=== PATIENT | female | born 1935 | race Caucasian/White ===

== ENCOUNTER 2017-11-02 03:33 | Inpatient (IN) | payer OTHER, MEDICAID ==
[2017-11-02] MEDS ORDERED: ACETAMINOPHEN 500 MG TAB PO ONE (03:43)
[2017-11-02 03:51] LABS: PLATELET COUNT 259 10^3/uL (150-400)
--- NOTE | 2017-11-02 03:53 | EDPHY ---
H & P Stated Complaint: mechanical fall- poss broken hip Time Seen by Provider: 11/02/17 03:44 HPI/ROS: History is limited by patient's dementia. HPI The patient presents with fall which occurred at about 9:00 p.m. Tonight. She landed on her right hip. X-rays were obtained at [facility] which did demonstrate right-sided intertrochanteric fracture. She is brought in by ambulance. She is complaining of right-sided hip pain which is worse with changes in position. She did not sustain any other injuries. She has a MOST form at the bedside stating that she is comfort measures only. REVIEW OF SYSTEMS Constitutional: No fever, no chills. Eyes: No discharge. ENT: No sore throat. Cardiovascular: No chest pain, no palpitations. Respiratory: No cough, no shortness of breath. Gastrointestinal: No abdominal pain, no vomiting. Genitourinary: No hematuria. Musculoskeletal: No back pain. Skin: No rashes. Neurological: No headache. PMHx: Hypothyroidism, dementia Soc Hx: Resides at [facility] PHYSICAL General Appearance: Alert, no distress Eyes: Pupils equal and round no pallor or injection ENT, Mouth: Mucous membranes moist Respiratory: There are no retractions, lungs are clear to auscultation Cardiovascular: Regular rate and rhythm Gastrointestinal: Abdomen is soft and non-tender, no masses, bowel sounds normal Neurological: A&O, moves all extremities Skin: Warm and dry, no rashes Musculoskeletal: Right hip is tender to palpation with limited range of motion secondary to pain, leg is foreshortened and externally rotated Extremities: symmetrical, full range of motion Psychiatric: Patient is oriented X 3, there is no agitation Source: Patient, EMS, skilled nursing records Exam Limitations: Physical impairment - Medical/Surgical History Hx Asthma: No Hx Chronic Respiratory Disease: No Hx Diabetes: No Hx Cardiac Disease: No Hx Renal Disease: No Hx Cirrhosis: No Hx Alcoholism: No Hx HIV/AIDS: No Hx Splenectomy or Spleen Trauma: No Other PMH: hypothyroid, dementia - Social History Smoking Status: Unknown if ever smoked Constitutional: Initial Vital Signs Temperature (C) 36.7 C 11/02/17 03:40 Heart Rate 108 H 11/02/17 03:40 Respiratory Rate 20 11/02/17 03:40 Blood Pressure 171/96 H 11/02/17 03:40 O2 Sat (%) 94 11/02/17 03:40 Allergies/Adverse Reactions: No Known Allergies Allergy (Unverified 11/02/17 03:39) Home Medications: Medication Instructions Recorded Ibuprofen 11/02/17 Milk of Magnesia 11/02/17 Tums 500MG (*) 11/02/17 Tylenol 11/02/17 Medical Decision Making - Diagnostics Imaging Results: X-ray right hip two view shows intertrochanteric fracture which is displaced, interpreted by me, radiology interpretation is pending. Chest x-ray one view demonstrates no cardiomegaly, no effusion, interpreted by me, radiology interpretation is pending. Imaging: I viewed and interpreted images myself Differential Diagnosis: 81-year-old female from [facility] with history of dementia and hypothyroidism presents with a fall which occurred at 9:00 p.m. [facility]. Details of the fall are not entirely clear. She had an x-ray performed at [facility] which demonstrated a right intratrochanteric hip fracture. She is comfort measures only, however was previously very active in her wheelchair, so it is unclear if she would want to undergo an operation. With patient's dementia, I am not able to ascertain what her preference would be. I plan to admit her for pain control, Orthopedics consult. Labs have returned and are unremarkable. We have not yet heard from family. X- ray confirms intertrochanteric fracture with displacement. Patient's pain seems well controlled when she is not moving. I consulted with Dr. Isabel the orthopedist environmental services manager. He is aware of the patient. We do need to get more information from her family to see if an operation such as this within her goals of care given she is comfort measures only. We have not been able to reach anyone [facility]. She will be admitted to the hospitalist for pain control and I have consulted with Dr. Crawford. 7:20 a.m.- I was able to get a hold of the patient's daughter who is her DPOA. She says that the patient would want an operation to repair her hip. She is very mobile usually in uses her wheelchair frequently. - Data Points Laboratory Results: Laboratory Results 11/02/17 03:45 11/02/17 03:45 11/02/17 11/02/17 11/02/17 03:45 03:45 03:45 WBC 10.10 10^3/uL H 10^3/uL (3.80-9.50) RBC 3.79 10^6/uL L 10^6/uL (4.18-5.33) Hgb 11.0 g/dL L g/dL (12.6-16.3) Hct 33.4 % L % (38.0-47.0) MCV 88.1 fL fL (81.5-99.8) MCH 29.0 pg pg (27.9-34.1) MCHC 32.9 g/dL g/dL (32.4-36.7) RDW 15.3 % H % (11.5-15.2) Plt Count 259 10^3/uL 10^3/uL (150-400) MPV 10.5 fL fL (8.7-11.7) Neut % (Auto) 75.5 % H % (39.3-74.2) Lymph % (Auto) 16.5 % % (15.0-45.0) [place] % (Auto) 7.1 % % (4.5-13.0) Eos % (Auto) 0.3 % L % (0.6-7.6) Baso % (Auto) 0.2 % L % (0.3-1.7) Nucleat RBC Rel Count 0.0 % % (0.0-0.2) Absolute Neuts (auto) 7.62 10^3/uL H 10^3/uL (1.70-6.50) Absolute Lymphs (auto) 1.67 10^3/uL 10^3/uL (1.00-3.00) Absolute Monos (auto) 0.72 10^3/uL 10^3/uL (0.30-0.80) Absolute Eos (auto) 0.03 10^3/uL 10^3/uL (0.03-0.40) Absolute Basos (auto) 0.02 10^3/uL 10^3/uL (0.02-0.10) Absolute Nucleated RBC 0.00 10^3/uL 10^3/uL (0-0.01) Immature Gran % 0.4 % % (0.0-1.1) Immature Gran # 0.04 10^3/uL 10^3/uL (0.00-0.10) PT 12.9 SEC SEC (12.0-15.0) INR 0.95 (0.83-1.16) APTT 24.3 SEC SEC (23.0-38.0) Sodium 142 mEq/L mEq/L (135-145) Potassium 4.5 mEq/L mEq/L (3.3-5.0) Chloride 106 mEq/L mEq/L (97-110) Carbon Dioxide 22 mEq/l mEq/l (22-31) Anion Gap 14 mEq/L mEq/L (8-16) BUN 19 mg/dL mg/dL (7-23) Creatinine 0.6 mg/dL mg/dL (0.6-1.0) Estimated GFR > 60 Glucose 112 mg/dL H mg/dL (70-100) Calcium 9.0 mg/dL mg/dL (8.5-10.4) Medications Given: Discontinued Medications Acetaminophen (Tylenol) 1,000 mg PO EDNOW ONE Stop: 11/02/17 03:44 Last Admin: 11/02/17 03:49 Dose: 1,000 mg Departure - Departure Disposition: [facility] In[facility] Acute Clinical Impression: Hip fracture Qualifiers: Encounter type: initial encounter Fracture type: closed Laterality: right Qualified Code(s): S72.001A - Fracture of unspecified part of neck of right femur, initial encounter for closed fracture Dementia Qualifiers: Dementia type: unspecified type Dementia behavioral disturbance: with behavioral disturbance Qualified Code(s): F03.91 - Unspecified dementia with behavioral disturbance Condition: Fair
--- NOTE | 2017-11-02 03:59 | CPEKG ---
Heart Rate: 105 RR Interval: 571 P-R Interval: 152 QRSD Interval: 122 QT Interval: 340 QTC Interval: 450 P [place]: 67 QRS [place]: -28 T Wave [place]: 33 EKG Severity - ABNORMAL ECG - EKG Impression: SINUS TACHYCARDIA EKG Impression: NONSPECIFIC INTRAVENTRICULAR CONDUCTION DELAY EKG Impression: PROBABLE INFERIOR INFARCT, OLD Electronically Signed By: Kati Camilo 02-Nov-2017 07:12:20
[2017-11-02 04:02] LABS: INR 0.95 (0.83-1.16); PROTIME(PATIENT) 12.9 SEC (12.0-15.0)
[2017-11-02] MEDS ORDERED: ACETAMINOPHEN 325 MG TAB PO PRN (05:06)
[2017-11-02] MEDS ORDERED: ONDANSETRON DISINTEGRATING 4 MG TAB PO PRN (05:06)
[2017-11-02] MEDS ORDERED: ONDANSETRON 4 MG/2 ML VIAL IVP PRN ×2 (05:06→23:05)
--- NOTE | 2017-11-02 05:28 | PDGENHP ---
History and Physical - Chief Complaint Hip fracture - History of Present Illness 81 yo F w/ advanced dementia presents from nursing facility with a hip fracture. She fell around 9 PM and XRs are notable for a R intertrochanteric fracture. The patient has advanced dementia and is unable to provide any additional history. She does not recall falling and is denying pain to me at this time. She has difficulty engaging in logical conversation and is oriented to person only, even though she is alert. A MOST form with her states comfort measures only. It is unclear at this time if surgical intervention would be desired as family has not been able to be reached as of yet. History Information - Allergies/Home Medication List Allergies/Adverse Reactions: No Known Allergies Allergy (Unverified 11/02/17 03:39) Home Medications: Ibuprofen 11/02/17 [Last Taken Unknown] Milk of Magnesia 11/02/17 [Last Taken Unknown] Tums 500MG (*) 11/02/17 [Last Taken Unknown] Tylenol 11/02/17 [Last Taken Unknown] I have personally reviewed and updated: family history, medical history - Past Medical History dementia - Surgical History Additional surgical history: L hip replacement - Family History Additional family history: Unable to obtain - Social History Smoking Status: Unknown if ever smoked Review of Systems Review of Systems: Unable to obtain Physical Exam Physical Exam: Temp Pulse Resp BP Pulse Ox 36.7 C 108 H 20 171/96 H 94 11/02/17 03:40 11/02/17 03:40 11/02/17 03:40 11/02/17 03:40 11/02/17 03:40 Constitutional: no apparent distress, not in pain Eyes: PERRL, anicteric sclera Ears, Nose, Mouth, Throat: moist mucous membranes, no oral mucosal ulcers Cardiovascular: regular rate and rhythym, systolic murmur Respiratory: no respiratory distress, clear to auscultation Gastrointestinal: normoactive bowel sounds, soft, non-tender abdomen Skin: warm, normal color Neurologic: other (A&Ox1), No facial droop Psychiatric: poor insight, poor judgement, poor memory Lab Data & Imaging Review 11/02/17 03:45 11/02/17 03:45 WBC 10.10 10^3/uL (3.80-9.50) H 11/02/17 03:45 RBC 3.79 10^6/uL (4.18-5.33) L 11/02/17 03:45 Hgb 11.0 g/dL (12.6-16.3) L 11/02/17 03:45 Hct 33.4 % (38.0-47.0) L 11/02/17 03:45 MCV 88.1 fL (81.5-99.8) 11/02/17 03:45 MCH 29.0 pg (27.9-34.1) 11/02/17 03:45 MCHC 32.9 g/dL (32.4-36.7) 11/02/17 03:45 RDW 15.3 % (11.5-15.2) H 11/02/17 03:45 Plt Count 259 10^3/uL (150-400) 11/02/17 03:45 MPV 10.5 fL (8.7-11.7) 11/02/17 03:45 Neut % (Auto) 75.5 % (39.3-74.2) H 11/02/17 03:45 Lymph % (Auto) 16.5 % (15.0-45.0) 11/02/17 03:45 [place] % (Auto) 7.1 % (4.5-13.0) 11/02/17 03:45 Eos % (Auto) 0.3 % (0.6-7.6) L 11/02/17 03:45 Baso % (Auto) 0.2 % (0.3-1.7) L 11/02/17 03:45 Nucleat RBC Rel Count 0.0 % (0.0-0.2) 11/02/17 03:45 Absolute Neuts (auto) 7.62 10^3/uL (1.70-6.50) H 11/02/17 03:45 Absolute Lymphs (auto) 1.67 10^3/uL (1.00-3.00) 11/02/17 03:45 Absolute Monos (auto) 0.72 10^3/uL (0.30-0.80) 11/02/17 03:45 Absolute Eos (auto) 0.03 10^3/uL (0.03-0.40) 11/02/17 03:45 Absolute Basos (auto) 0.02 10^3/uL (0.02-0.10) 11/02/17 03:45 Absolute Nucleated RBC 0.00 10^3/uL (0-0.01) 11/02/17 03:45 Immature Gran % 0.4 % (0.0-1.1) 11/02/17 03:45 Immature Gran # 0.04 10^3/uL (0.00-0.10) 11/02/17 03:45 PT 12.9 SEC (12.0-15.0) 11/02/17 03:45 INR 0.95 (0.83-1.16) 11/02/17 03:45 APTT 24.3 SEC (23.0-38.0) 11/02/17 03:45 Sodium 142 mEq/L (135-145) 11/02/17 03:45 Potassium 4.5 mEq/L (3.3-5.0) 11/02/17 03:45 Chloride 106 mEq/L (97-110) 11/02/17 03:45 Carbon Dioxide 22 mEq/l (22-31) 11/02/17 03:45 Anion Gap 14 mEq/L (8-16) 11/02/17 03:45 BUN 19 mg/dL (7-23) 11/02/17 03:45 Creatinine 0.6 mg/dL (0.6-1.0) 11/02/17 03:45 Estimated GFR > 60 11/02/17 03:45 Glucose 112 mg/dL (70-100) H 11/02/17 03:45 Calcium 9.0 mg/dL (8.5-10.4) 11/02/17 03:45 Visualized and Interpreted EKG results: Yes EKG Interpretation: Positive for: other (Sinus tachycardia) Assessment & Plan Assessment: 81 yo F w/ advanced dementia p/w R intertrochanteric hip fracture. Plan: 1. R intertrochanteric fracture - Injury sustained during a fall at her living facility. Patient is unable to provide additional history due to advanced dementia. Her MOST form states comfort measures only, but family has not been able to be reached to clarify wether surgical correction would be desired. - Orthopedic service (Dr. Isabel) contacted, aware of situation and awaiting family input - Admit for pain control, will do so conservatively noting poor baseline and high risk for delirium 2. Advanced dementia - Patient is oriented only to self on my evaluation and has a difficult time carrying on logical conversation. She is unable to provide history of her fall or meaningful input on wether she would desire surgery for her hip. - Delirium precautions Diet - NPO pending decision on surgery Code - DNR, comfort measures only per MOST Ppx - SCDs Dispo - Admit under observation status
--- NOTE | 2017-11-02 10:26 | ASMTCMCOM ---
CM Note CM Note Notes: Pt admitted after fall with R hip fx. She has adv dementia, [facility] sounds like [facility] but need to confirm, left voicemail w/Noemi from BM. Pt will have ortho consult today. Discussed w/RN who said daughter is aware of pt's hospitalization. Awaiting ortho consult. Anticipate pt will return to facility where she resides. CM will folow. Date Signed: 11/02/2017 10:26 AM Electronically Signed By:Nicki Sellers RN
--- NOTE | 2017-11-02 11:05 | PDCONSULT ---
Fruit Thinner Machine Operator Note: Orthopaedic Consult DOS 11/02/2017 HPI: Called by ED (Leslee) to evaluate patient on the floor. She is a 81 y F with dementia who fell at [facility] and p/w a Righ IT fracture. H/o prior Left hip fracture and IMN. While she has a comfort care instruction sheet, nurse reports that family POA is interested in pursuing surgical fixation. PMHx: Includes Hypothyroid PSHx: includes left femur IMN (2014) Meds: see intake note FamHx: Non contributory SocHx: nonsmoker All: NKDA PE: Confused. responsive but not always coherent. RLE: TTP Right hip. SILT S/S/SP/DP/T. 2+ DP pulse. Moving toes and ankle well. A/P: 89y F w dementia h/o prior Left femur IMN p/w Right femur IT fracture - Right femur films - Daughter wishes to proceed with surgery after discussion of risks/benefits/ alternatives. They have had a nail placed before and are aware of complication risks. - NPO after 12pm - Tentative plan for OR tonight
[2017-11-02] MEDS ORDERED: MAGNESIUM HYDROXIDE 30 ML UDCUP PO PRN (12:29)
[2017-11-02] MEDS ORDERED: CALCIUM CARBONATE 500 MG CHEWABLE TAB PO PRN (12:29)
[2017-11-02] MEDS: D5W 1/2 NS 1,000 ML IV SCH (14:09)
--- NOTE | 2017-11-02 14:42 | HOSPPROG ---
Hospitalist Progress Note Assessment/Plan: 81 yo F w/ advanced dementia p/w R intertrochanteric hip fracture. Plan: 1. R intertrochanteric fracture - -Injury sustained during a fall at her living facility. -Patient is unable to provide additional history due to advanced dementia. -Her MOST form states comfort measures only -Orthopedic service (Dr. Isabel) contacted, aware of situation -Admit for pain control, will do so conservatively noting poor baseline and high risk for delirium 2. Advanced dementia - -Patient is oriented only to self on my evaluation and has a difficult time carrying on logical conversation. -She is unable to provide history of her fall or meaningful input on wether she would desire surgery for her hip. -Delirium precautions Diet - NPO pending decision on surgery Code - DNR, comfort measures only per MOST Ppx - SCDs Dispo -change to inpt status -will go to OR today with Dr. Isabel Subjective: Complaints of pain in leg. Objective: Vital Signs Temp Pulse Resp BP Pulse Ox 36.6 C 97 14 138/72 H 93 11/02/17 11:43 11/02/17 11:43 11/02/17 11:43 11/02/17 11:43 11/02/17 11:43 PT 12.9 SEC (12.0-15.0) 11/02/17 03:45 INR 0.95 (0.83-1.16) 11/02/17 03:45 - Physical Exam Constitutional: chronically ill appearing, uncomfortable Eyes: PERRL, anicteric sclera Ears, Nose, Mouth, Throat: moist mucous membranes, hearing normal Cardiovascular: No JVD, No edema Gastrointestinal: No tenderness, No ascites Skin: warm Neurologic: No AAOx3 Psychiatric: not anxious, poor insight, poor judgement, poor memory, No thought process linear ICD10 Worksheet Patient Problems: Problems Problem Status Onset Hip fracture Acute Dementia Acute
[2017-11-02] MEDS ORDERED: LIDOCAINE 1% 300 MG/30 ML SDV ONE (19:37)
[2017-11-02] MEDS ORDERED: BUPIVACAINE 0.25% 30 ML SDV ONE (19:37)
[2017-11-02] MEDS ORDERED: BUPIVACAINE/EPI 0.5% 30 ML SDV ONE (19:37)
[2017-11-02] MEDS ORDERED: EPINEPHrine 1 MG/ML INJ ONE (19:38)
[2017-11-02] MEDS ORDERED: LR 1,000 ML IV ONE (19:58)
[2017-11-02] MEDS ORDERED: CEFAZOLIN 2 GM/DEXTROSE/100 ML BAG IV ONE (20:06)
[2017-11-02] MEDS ORDERED: LIDOCAINE 2% 100 MG/5 ML SYR ONE (20:31)
[2017-11-02] MEDS ORDERED: fentaNYL 100 MCG/2 ML INJ ONE ×2 (20:31→20:49)
[2017-11-02] MEDS ORDERED: PROPOFOL 200 MG/20 ML VIAL ONE (20:31)
[2017-11-02] MEDS ORDERED: ROCURONIUM 100 MG/10 ML VIAL ONE (20:31)
[2017-11-02] MEDS ORDERED: DEXAMETHASONE 4 MG/ML VIAL ONE (20:31)
--- NOTE | 2017-11-02 21:39 | PDANEPAE ---
ANE Past Medical History - Pulmonary History Hx Oxygen in Use at Home: No Hx Sleep Apnea: No - Endocrine History Hx Diabetes: No - Chronic Pain History Chronic Pain: No ANE Review of Systems Review of Systems: ANE Patient History - Allergies Allergies/Adverse Reactions: No Known Allergies Allergy (Unverified 11/02/17 03:39) - Home Medications Home Medications: Acetaminophen [Tylenol 325mg (*)] 650 mg PO Q6HRS PRN 11/02/17 [Last Taken Unknown] Calcium Carbonate [Tums 500MG (*)] 1,000 mg PO Q6HRS PRN 11/02/17 [Last Taken Unknown] Ibuprofen [Motrin (*)] 400 mg PO Q6HRS PRN 11/02/17 [Last Taken Unknown] Magnesium Hydroxide [Milk of Magnesia] 30 ml PO DAILY PRN 11/02/17 [Last Taken Unknown] - NPO status NPO Since - Liquids (Date): 11/02/17 NPO Since - Liquids (Time): 12:30 NPO Since - Solids (Date): 11/02/17 NPO Since - Solids (Time): 12:30 - Smoking Hx Smoking Status: Unknown if ever smoked ANE Labs/Vital Signs - Labs Result Diagrams: 11/02/17 03:45 11/02/17 03:45 - Vital Signs Blood Pressure: 137/68 Heart Rate: 94 Respiratory Rate: 14 O2 Sat (%): 96 Weight: 63.134 kg ANE Physical Exam - Airway Neck exam: FROM Mallampati Score: Class 3 Mouth exam: poor dentition - Pulmonary Pulmonary: no respiratory distress - Cardiovascular Cardiovascular: regular rate and rhythym - ASA Status ASA Status: III ANE Anesthesia Plan Anesthesia Plan: general endotracheal anesthesia Urgent/Emergent Case: Gaby shabazz completed preop but documented later for safe timely pt care
[2017-11-02] MEDS ORDERED: BACITRACIN ZINC 14.2 GM OINTTUBE TP ONE (22:19)
[2017-11-02] MEDS ORDERED: fentaNYL 100 MCG/2 ML INJ IVP PRN (23:05)
[2017-11-02] MEDS ORDERED: ALBUTEROL 3 ML DEYVIAL IH PRN (23:05)
[2017-11-02] MEDS ORDERED: NALOXONE HCL 0.4 MG/ML INJ IVP PRN (23:05)
--- NOTE | 2017-11-02 23:06 | POSTANESTH ---
Post Anesthetic Evaluation Cardiovascular Status: Similar to Pre-Op Cond Respiratory Status: Similar to Pre-op Cond. Level of Consciousness/Mental Status: Mildly Sleepy, Arousable, Moderately Sleepy Pain Control: Adequate, Prn Tx Ordered Nausea/Vomiting Control: Adequate, Prn Tx Ordered Complications Possibly Related to Anesthesia: None Noted
[2017-11-03] MEDS: ceFAZolin 2 GM/DEXTROSE 100 ML IV SCH ×3 (05:41→22:51)
--- NOTE | 2017-11-03 11:53 | PDMN ---
Medical Necessity Medical necessity: Change to IP, as of 11/02/17, per METAL SOLDERER; los >2 mn for ongoing management of R hip fx s/p fall; admit for surgical intervention, further monitoring, IVFs, IV abx, pain control & therapies; comorbid advanced dementia; per progress note & order 11/02/17
[2017-11-03] MEDS: D5W 1/2 NS 1,000 ML IV SCH ×2 (13:13→20:12)
[2017-11-03] MEDS: ACETAMINOPHEN 325 MG TAB PO PRN (13:21)
--- NOTE | 2017-11-03 14:30 | HOSPPROG ---
Hospitalist Progress Note Assessment/Plan: 81 yo F w/ advanced dementia p/w R intertrochanteric hip fracture. Plan: 1. R intertrochanteric fracture - -POD #1 nailing -Injury sustained during a fall at her living facility. -Patient is unable to provide additional history due to advanced dementia. -Her MOST form states comfort measures only 2. Advanced dementia - -Patient is oriented only to self -She is unable to provide history of her fall or meaningful input on wether she would desire surgery for her hip. -Delirium precautions 3. Fever -one episode -resolved -monitor for infection 4. Hypotension -responded to fluid 5. Pain -add norco Diet - per speech recs Code - DNR, comfort measures only per MOST Ppx - SCDs Dispo -inpt status Return to BM when able Subjective: No verbal interaction. Objective: Vital Signs Temp Pulse Resp BP Pulse Ox 37.6 C 98 18 106/58 L 95 11/03/17 12:00 11/03/17 12:00 11/03/17 12:00 11/03/17 12:00 11/03/17 12:00 11/02/17 11/03/17 11/04/17 05:59 05:59 05:59 Intake Total 1575 Output Total 450 Balance 1125 PT 12.9 SEC (12.0-15.0) 11/02/17 03:45 INR 0.95 (0.83-1.16) 11/02/17 03:45 - Physical Exam Constitutional: chronically ill appearing, uncomfortable Eyes: PERRL, anicteric sclera Ears, Nose, Mouth, Throat: moist mucous membranes, ears appear normal Cardiovascular: No JVD, No edema Respiratory: no respiratory distress, reduced air movement Gastrointestinal: No tenderness, No ascites Skin: warm, normal color Musculoskeletal: pain with ROM, generalized weakness Neurologic: No AAOx3 Psychiatric: encephalopathic, poor insight, poor judgement ICD10 Worksheet Patient Problems: Problems Problem Status Onset Hip fracture Acute Dementia Acute
[2017-11-03] MEDS: HYDROCODONE/APAP 5/325 TAB PO PRN ×2 (16:04→17:26)
--- NOTE | 2017-11-03 16:44 | ASMTCMCOM ---
CM Note CM Note Notes: Pt s/p surgery for hip fx. Noemi confirms pt resides at [facility]. OT/PT rec SNF. Pt can receive therapy at if ordered. Pt likely d/c tomorrow. D/c plan of care: Return to [facility] when medically stable. Date Signed: 11/03/2017 04:44 PM Electronically Signed By:JOSE D Lassiter
[2017-11-04] MEDS: ceFAZolin 2 GM/DEXTROSE 100 ML IV SCH (06:25)
--- NOTE | 2017-11-04 10:01 | PDIAF ---
- Diagnosis Diagnosis: hip fx Code Status: Do Not Resuscitate - Medication Management Discharge Medications: Medications to Continue on Transfer Acetaminophen [Tylenol 325mg (*)] 650 mg PO Q6HRS PRN 11/02/17 [Last Taken Unknown] Calcium Carbonate [Tums 500MG (*)] 1,000 mg PO Q6HRS PRN 11/02/17 [Last Taken Unknown] Magnesium Hydroxide [Milk of Magnesia] 30 ml PO DAILY PRN 11/02/17 [Last Taken Unknown] Hydrocodone/APAP 5/325 [[place] 5/325 (*)] 1 tab PO Q4HRS PRN tab 11/04/17 [Last Taken Unknown] Discharge Medications: Refer to the Discharge Home Medication list for PRN reason. PICC Care - Routine: N/A - Orders Services needed: Registered Nurse, Physical Therapy, Occupational Therapy Diet Texture: Dysphagia 1 - Pureed, Honey Thick Liquids, Meds Whole in Puree - Follow Up Care Current Providers and Referrals: Patient,NotPresent [Unknown] - As per Instructions
--- NOTE | 2017-11-04 11:52 | ASMTLACE ---
ARIEE Length of stay for Answers: 2 days current admission Acuity / Level of Answers: Yes Care: Did the patient have an inpatient admission? Comorbidities - select Answers: Dementia all that apply Other Notes: hip fx Score: 9 Date Signed: 11/04/2017 11:51 AM Electronically Signed By:Karolina Ayala RN
--- NOTE | 2017-11-04 12:02 | GDS ---
[f rep st] DISCHARGE SUMMARY DISCHARGE DIAGNOSES: 1. Right intertrochanteric fracture. 2. Advanced dementia. 3. Hypotension. 4. Fever. CONSULTATIONS: Dr. Isabel of Orthopedics. STUDIES AND PROCEDURES DONE: Nailing of the right femur. PHYSICAL EXAM: GENERAL: The patient is demented. VITAL SIGNS: Afebrile at 37.2, pulse is 90, respiratory rate is 18, blood pressure is 112/58. She is saturating 92% on room air. I have seen and evaluated the patient on the day of discharge. HOSPITAL COURSE: The patient is an 81-year-old female who presented to the emergency room with complaints of hip pain. She was evaluated and diagnosed with: 1. Right intertrochanteric fracture. During this hospitalization, she received a consultation from Orthopedics. Surgical nailing was performed, and the patient will continue therapies. 2. Advanced dementia. She is at her baseline with regard to this condition. 3. Fever. She had 1 episode in the postoperative setting. This has not recurred, and no signs of infection are present. 4. Hypotension. This has responded well to IV fluid, and she is normotensive at the time of disposition. 5. Pain. The patient is refusing pain medication at this time. Her pain seems to be stable. DISPOSITION: She will return to [facility], where she normally resides. There are no pending studies. DISCHARGE MEDICATIONS: Please refer to the EMR form. I have not adjusted the patient's previously prescribed home medications to the best of my knowledge. Followup will be with Dr. Isabel, as well as the patient's primary care physician. I have discussed the patient's disposition with the special education case manager. Dictating for Dr Adhikari /[id number] [id number]
[2017-11-04 12:10] VITALS: BP 115/56
[2017-11-04] MEDS: ACETAMINOPHEN 325 MG TAB PO PRN (12:15)
[2017-11-04] MEDS ORDERED: ACETAMINOPHEN 325 MG SUPP PR PRN (12:26)
--- NOTE | 2017-11-04 18:39 | ASDISCHSUM ---
Discharge Information Plan Status:SNF Medically Cleared to Leave:11/04/2017 Discharge Date:11/04/2017 01:14 PM CM D/C Disposition:Rehab [facility] Care ADT D/C Disposition:Halfway Facility Projected Discharge Date:11/04/2017 11:00 AM Transportation at D/C:ALS/BLS Discharge Delay Reason: Follow-Up Date:11/04/2017 11:00 AM Discharge Slot:2 - 12:01 pm - 18:00 pm Final Diagnosis:R intertrochanertic fracture, advanced dementia, fever, hypotension, pain Placement Information Referral Type:*Alf/SNF Referral ID:[facility]-[id number] Provider Name:Estrellita Calixto/[facility] Address 1:[address] Phone Number: Address 2: Fax Number: [facility]:[place] Selection Factors:Returning to Facility State:[place] Patient Contact Information Contact Name:KHURRAM Relationship:Mother Address: Work Phone: City: [facility] Phone: [facility]/Zip Code: Email: Financial Information Financial Class:Medicare Primary Plan Desc:MEDICARE OUTPATIENT Primary Plan Number:[id number] Secondary Plan Desc:MEDICAID [place] Secondary Plan Number:[id number] Assessment Information LACE LACE Length of stay for Answers: 2 days current admission Acuity / Level of Answers: Yes Care: Did the patient have an inpatient admission? Comorbidities - select Answers: Dementia all that apply Other Notes: hip fx Score: 9 Date Signed: 11/04/2017 11:51 AM Electronically Signed By:Karolina Ayala RN [facility] Progress Note CM Note CM Note Notes: Pt admitted after fall with R hip fx. She has adv dementia, lives at longterm- sounds like maybe [facility] but need to confirm, left voicemail w/Noemi from . Pt will have ortho consult today. Discussed w/RN who said daughter is aware of pt's hospitalization. Awaiting ortho consult. Anticipate pt will return to facility where she resides. CM will folow. Date Signed: 11/02/2017 10:26 AM Electronically Signed By:Nicki Sellers RN [facility] CM Progress Note CM Note CM Note Notes: Pt s/p surgery for hip fx. Noemi confirms pt resides at [facility]. OT/PT rec SNF. Pt can receive therapy at if ordered. Pt likely d/c tomorrow. D/c plan of care: Return to [facility] when medically stable. Date Signed: 11/03/2017 04:44 PM Electronically Signed By:JOSE D Lassiter Case Management Discharge Plan Note Case Management Discharge Discharge Order Complete? Answers: Yes Patient to Obtain Answers: Other Notes: via [facility] Medications Transportation Arranged Answers: [facility] will Pick (Date 11/04/2017 01:00 PM & Time) DAVID Complete Answers: No Notes: N/A Case Management Transport Answers: Yes Notes: PCS form completed Form Complete Faxed Final Orders Answers: Yes Notes: Sent via [employer] and manual fax per Noemi's request; confirmed receipt Agency/Facility Transfer Answers: Yes Notes: Sent via [employer] and Report Printed & Faxed to manual fax per Noemi's Receiving Agency request; confirmed receipt Family Notified Answers: Yes Notes: Spoke with harrison Meyer 's pieror Discharge Comments Notes: Reviewed chart, spoke with Jocy Claire, [employer] and MARIANA Lira. Pt to discharge back to [facility] today. Call placed to Noemi at [facility]. Per Noemi, able to accept the pt today. Transportation to be arranged and paid for by [facility]. Discharge orders and paperwork sent via [employer] and manual fax per Noemi's request; confirmed receipt. [facility] to provide stretcher transport at 13:00. Update provided to pt, RN and pt's Betsy huerta. PCS form completed. IM not signed; pt unable secondary to confusion/dementia. Betsy Huerta not present; meeting pt at [facility]. Pt to follow up as directed. CM available for any further issues or concerns. Discharge Plan: [facility] Date Signed: 11/04/2017 06:38 PM Electronically Signed By:Karolina Ayala RN Intervention Information Intervention Type:ORDAZ-Not Delivered Date of Service:11/02/2017 01:49 PM Patient Type:Observation Staff Member:Jenn Valles Hours: Discipline: Severity: Comment:Patient has advanced dementia. MDPOA i s unknown at this time. Intervention Type:IM-Pt. Not Available Date of Service:11/04/2017 11:40 AM Patient Type:Inpatient Staff Member:MARIANA Ayala Taylor Hours: Discipline: Severity: Comment:Attempted several times; pt sleeping, unable/confused secondary to dementia.
--- NOTE | 2017-11-04 18:39 | ASMTDCNOTE ---
Case Management Discharge Discharge Order Complete? Answers: Yes Patient to Obtain Answers: Other Notes: via [facility] Medications Transportation Arranged Answers: [facility] will Pick (Date 11/04/2017 01:00 PM & Time) EMTALA Complete Answers: No Notes: N/A Case Management Transport Answers: Yes Notes: PCS form completed Form Complete Faxed Final Orders Answers: Yes Notes: Sent via [employer] and manual fax per Noemi's request; confirmed receipt Agency/Facility Transfer Answers: Yes Notes: Sent via [employer] and Report Printed & Faxed to manual fax per Noemi's Receiving Agency request; confirmed receipt Family Notified Answers: Yes Notes: Spoke with Betsy, pt 's peehtr Discharge Comments Notes: Reviewed chart, spoke with Jocy Claire NP and MARIANA Lira. Pt to discharge back to [facility] today. Call placed to Noemi at [facility]. Per Noemi, able to accept the pt today. Transportation to be arranged and paid for by [facility]. Discharge orders and paperwork sent via [employer] and manual fax per Noemi's request; confirmed receipt. [facility] to provide stretcher transport at 13:00. Update provided to pt, RN and pt's Betsy huerta. PCS form completed. IM not signed; pt unable secondary to confusion/dementia. Betsy Huerta not present; meeting pt at [facility]. Pt to follow up as directed. CM available for any further issues or concerns. Discharge Plan: [facility] Date Signed: 11/04/2017 06:38 PM Electronically Signed By:Karolina Ayala RN
--- NOTE | 2017-11-05 15:30 | POSTOPPROG ---
Post Op Note Date of Operation: 11/02/17 Surgeon: Eliazar Isabel Anesthesia: GET(General Endotracheal) Pre-op Diagnosis: Right femur IT fracture Post-op Diagnosis: Same Procedure: IMN Right femur Inf/Abcess present in the surg proc area at time of surgery?: No EBL: 100-500
--- NOTE | 2017-11-05 15:40 | SUROPNOTE ---
[facility] Operative Report - Surgery Operative Report DOS:11/02/2017 Attg: Eliazar Isabel MD Asst:None Preop Dx: Right IT femur fracture Postop Dx: Same Procedure: Right intramedullary nail fixation of femur fracture Anesthesia: General Indication: 81y F with dementia s/p Fall p/w right IT fracture. After speaking with daughter, the POA, the decision was made to temporarily suspend the DNR and to proceed with operative fixation for the hip with a goal of increased mobility, less pain, and avoiding decompensation. Procedure Notes: The patient was taken to OR and anesthesia induced. She was transferred to the OR table. Legs were strapped in with feet and ankles padded with pads and cotton wrap. A timeout was performed confirming the patient, procedure, antibiotic status, and surgical site. Operative leg was prepped and draped in the typical fashion with a 'shower curtain' draped over the patient. Fluoroscopy was used to visualize the femur fracture and to reduce the fracture with positioning/traction. The trajectories of guidewires and femoral nail were marked out and the guide wire was introduced to achieve a trochanteric starting point. The starting point was checked on fluoroscopy and the pin introduced into the hip. The entry reamer was used to ream down to the lesser trochanter. A long guidewire with a slightly bent tip was sent through the channel down the femoral shaft to the knee.. The wire length was measured and nail length selected. The femoral shaft was reamed with serial increasing sizes of reamers until we obtained significant chatter ~1.5mm above the anticipated nail diameter. The final nail was selected and advanced down the guidewire. The nail was advanced until the lag screw channel lined up with the femoral neck , and the guidewire was advanced into the head. A helical blade was placed into the femoral neck and head. Distal interlocking was done with perfect circles technique. Final alignment was checked and the jig removed. The incisions were irrigated and then closed with #1 vicryl for the IT band, 2- O vicryl for subcutaneous layers and ct for the skin The drapes were removed, patient woke up and was transferred to the bed and then taken to the PACU for further observation. Count was correct at the conclusion of the case. I was present for the entirety of the case. Implants: Synthes TFN ([id number]) with helical blade (90mm) Complications: None EBL: 200 Drain: None Specimens: None
== END 2017-11-04 13:14 | DRG 482 ==
LOC: INTOOBSV 04:55 → OBSVTOIN 05:07 → F3N 05:31
PROVIDERS: ADMIT Student in an Organized Health Care Education/Training Program; ATTEND Student in an Organized Health Care Education/Training Program
PROC: 0QS636Z Reposition Right Upper Femur with Intramedullary Internal Fixation Device, Percutaneous Approach (ICD-10-PCS; principal; 2017-11-02 20:00)
DX: S72.111A Displaced fracture of greater trochanter of right femur, initial encounter for closed fracture (principal); F03.90 Unspecified dementia, unspecified severity, without behavioral disturbance, psychotic disturbance, mood disturbance, and anxiety; I95.9 Hypotension, unspecified; E03.9 Hypothyroidism, unspecified; W19.XXXA Unspecified fall, initial encounter; Z66 Do not resuscitate
CPT/HCPCS: 92610-GN; 97161-GP; 97166-GO; C1713; C1769; G8978-GP-CM; G8979-GP-CK; G8987-GO-CM; G8988-GO-CL; G8996-GN-CJ; G8997-GN-CI; J0171; J0690; J1100; J2001; J2704; J3010

== ENCOUNTER 2018-03-20 19:45 | Emergency (ER) | payer OTHER, MEDICAID ==
--- NOTE | 2018-03-20 19:46 | EDPHY ---
H & P Time Seen by Provider: 03/20/18 19:45 HPI/ROS: Chief Complaint: Altered mental status, hypertension, HPI: 82-year-old woman with a history of dementia from a shelter facility is coming in with altered mental status and elevated blood pressure. Step became concerned with blood pressure was persistently over 200 systolic. Patient has been decreasing we conversant and more confused. She has been without complaint. EMS did note strong odor of urine. She has been sent here for further evaluation. It is noted that she has completed MOST form indicating comfort measures only. ROS: 10 systems were reviewed and were negative except those elements noted in the HPI. Social History: No smoking, no alcohol, resides in a shelter facility Family History: non-contributory Physical Exam: Gen: Awake, Alert, No Distress HEENT: Nose: no rhinorrhea Eyes: PERRLA, EOMI Mouth: Moist mucosa Neck: Supple, no JVD Chest: nontender, lungs clear to auscultation Heart: S1, S2 normal, no murmur Abd: Soft, non-tender, no guarding Back: no CVA tenderness, no midline tenderness Ext: no edema, non-tender Skin: no rash Neuro: CN II-XII intact, Sensation grossly intact, Strength 5/5 in bilateral upper and lower extremities Constitutional: Initial Vital Signs Temperature (C) 36.8 C 03/20/18 19:20 Heart Rate 92 03/20/18 19:20 Respiratory Rate 18 03/20/18 19:20 Blood Pressure 128/88 H 03/20/18 19:20 O2 Sat (%) 91 L 03/20/18 19:20 O2 Delivery Mode Room Air Allergies/Adverse Reactions: No Known Allergies Allergy (Unverified 11/02/17 03:39) Home Medications: Medication Instructions Recorded Acetaminophen [Tylenol 325mg (*)] 650 mg PO Q6HRS PRN 11/02/17 Calcium Carbonate [Tums 500MG (*)] 1,000 mg PO Q6HRS PRN 11/02/17 Magnesium Hydroxide [Milk of 30 ml PO DAILY PRN 11/02/17 Magnesia] Hydrocodone/APAP 5/325 [[place] 1 tab PO Q4HRS PRN tab 11/04/17 5/325 (*)] Medical Decision Making - Diagnostics Imaging Results: Imaging Impressions Chest X-Ray 03/20/18 19:45 Impression: 1. Suspect low-grade congestive heart failure/fluid overload. 2. An element of airways disease is suspected. 3. See above report for additional findings. ED Course/Re-evaluation: 82-year-old woman presented with some mild changes in her cognition for her shortness and facility with hypertensive crisis. Her blood pressure has been unremarkable here. Currently she has a heart rate of 95 and a blood pressure of 130/78. She is awake alert without complaint. She has no infiltrate on her chest x-ray. Urinalysis is negative. Do not see any evidence of focal infection. She is not hypoxemic. I suspect she may have had a period of agitation which resulted in her hypertensive in. It is resolved without any further treatment. She is calm and sleeping. Plan will be to discharge back to her shelter facility with return for any concerns. - Data Points Laboratory Results: Laboratory Results 03/20/18 19:30 03/20/18 19:30 03/20/18 03/20/18 03/20/18 20:20 19:30 19:30 WBC 12.23 10^3/uL H 10^3/uL (3.80-9.50) RBC 4.72 10^6/uL 10^6/uL (4.18-5.33) Hgb 13.2 g/dL g/dL (12.6-16.3) Hct 40.7 % % (38.0-47.0) MCV 86.2 fL fL (81.5-99.8) MCH 28.0 pg pg (27.9-34.1) MCHC 32.4 g/dL g/dL (32.4-36.7) RDW 15.9 % H % (11.5-15.2) Plt Count 299 10^3/uL 10^3/uL (150-400) MPV 11.1 fL fL (8.7-11.7) Neut % (Auto) 81.3 % H % (39.3-74.2) Lymph % (Auto) 10.0 % L % (15.0-45.0) [place] % (Auto) 7.6 % % (4.5-13.0) Eos % (Auto) 0.6 % % (0.6-7.6) Baso % (Auto) 0.2 % L % (0.3-1.7) Nucleat RBC Rel Count 0.0 % % (0.0-0.2) Absolute Neuts (auto) 9.95 10^3/uL H 10^3/uL (1.70-6.50) Absolute Lymphs (auto) 1.22 10^3/uL 10^3/uL (1.00-3.00) Absolute Monos (auto) 0.93 10^3/uL H 10^3/uL (0.30-0.80) Absolute Eos (auto) 0.07 10^3/uL 10^3/uL (0.03-0.40) Absolute Basos (auto) 0.02 10^3/uL 10^3/uL (0.02-0.10) Absolute Nucleated RBC 0.00 10^3/uL 10^3/uL (0-0.01) Immature Gran % 0.3 % % (0.0-1.1) Immature Gran # 0.04 10^3/uL 10^3/uL (0.00-0.10) Sodium 142 mEq/L mEq/L (135-145) Potassium 4.3 mEq/L mEq/L (3.3-5.0) Chloride 105 mEq/L mEq/L (97-110) Carbon Dioxide 24 mEq/l mEq/l (22-31) Anion Gap 13 mEq/L mEq/L (6-14) BUN 31 mg/dL H mg/dL (7-23) Creatinine 0.8 mg/dL mg/dL (0.6-1.0) Estimated GFR > 60 Glucose 159 mg/dL H mg/dL (70-100) Calcium 9.7 mg/dL mg/dL (8.5-10.4) Urine Color YELLOW Urine Appearance HAZY Urine pH 5.0 (5.0-7.5) Ur Specific [place] 1.018 (1.002-1.030) Urine Protein NEGATIVE (NEGATIVE) Urine Ketones NEGATIVE (NEGATIVE) Urine Blood NEGATIVE (NEGATIVE) Urine Nitrate NEGATIVE (NEGATIVE) Urine Bilirubin NEGATIVE (NEGATIVE) Urine Urobilinogen NEGATIVE EU EU (0.2-1.0) Ur Leukocyte Esterase NEGATIVE (NEGATIVE) Urine Glucose NEGATIVE (NEGATIVE) Departure - Departure Disposition: Home, Routine, Self-Care Clinical Impression: Hypertension Condition: Good Instructions: Hypertension (ED) Additional Instructions: Follow up with primary care physician in 2-3 days for further evaluation. Return to the emergency department for increasing uncontrolled high blood pressure, high fevers, uncontrolled nausea vomiting, or any other concerns. Referrals: JOSE JAQUEZ [Other] - As per Instructions
[2018-03-20 20:09] LABS: PLATELET COUNT 299 10^3/uL (150-400)
[2018-03-20 21:46] VITALS: BP 136/77
== END 2018-03-20 21:53 | disposition home or self-care (01) ==
LOC: EDUNIT#
DX: R41.82 Altered mental status, unspecified (principal); I10 Essential (primary) hypertension; F03.90 Unspecified dementia, unspecified severity, without behavioral disturbance, psychotic disturbance, mood disturbance, and anxiety; J98.4 Other disorders of lung